=== PATIENT | female | born 1985 | race Two or more races ===

== ENCOUNTER 2018-04-04 12:42 | Emergency (ER) | payer OTHER ==
[~2018-04-04] VITALS: Ht 157.5 cm; Wt 62.1 kg
[~2018-04-04 12:42] MED LIST: DOLOGESIC CAPLE1 TAB PO; PROVENTIL3 ML/2.5 M IH
== END 2018-04-04 17:31 | disposition home or self-care (01) ==
LOC: ER 12:42
DX: B34.9 Viral infection, unspecified (principal)

== ENCOUNTER 2019-03-13 03:40 | Emergency (ER) | payer OTHER ==
[~2019-03-13] VITALS: Ht 157.5 cm; Wt 68.5 kg
[2019-03-13] MEDS ORDERED: ZYRTEC10 M3 (03:58)
[2019-03-13] MEDS ORDERED: PEPCID40 MG PO (08:03)
[2019-03-13] MEDS ORDERED: ZOFRAN4 MG PO (08:03)
== END 2019-03-13 08:27 | disposition home or self-care (01) ==
LOC: ER 03:40
DX: K29.00 Acute gastritis without bleeding (principal)

== ENCOUNTER 2019-06-08 20:44 | Emergency (ER) | payer OTHER ==
[~2019-06-08] VITALS: Ht 160 cm; Wt 65.8 kg
[~2019-06-08 20:44] MED LIST changes: +PEPCID40 MG PO; +ZOFRAN4 MG PO; +ZYRTEC10 M3
[2019-06-09] MEDS ORDERED: ZITHROMAX500 MG PO (01:12)
== END 2019-06-09 01:41 | disposition home or self-care (01) ==
LOC: ER 20:44
DX: J22 Unspecified acute lower respiratory infection (principal); B34.9 Viral infection, unspecified

== ENCOUNTER 2019-10-27 17:13 | Emergency (ER) | payer OTHER ==
[~2019-10-27] VITALS: Ht 157.5 cm; Wt 60.3 kg
[~2019-10-27 17:13] MED LIST changes: +ZITHROMAX500 MG PO
== END 2019-10-27 20:29 | disposition home or self-care (01) ==
LOC: ER 17:13
DX: E86.0 Dehydration (principal); R60.0 Localized edema; E87.8 Other disorders of electrolyte and fluid balance, not elsewhere classified; T67.01XA Heatstroke and sunstroke, initial encounter; X08.8XXA Exposure to other specified smoke, fire and flames, initial encounter; Y93.89 Activity, other specified; Y92.89 Other specified places as the place of occurrence of the external cause; Y99.8 Other external cause status; Z20.828 Contact with and (suspected) exposure to other viral communicable diseases

== ENCOUNTER 2022-03-21 11:00 | Emergency (ER) | payer OTHER ==
[~2022-03-21] VITALS: Ht 157.5 cm; Wt 63.5 kg
== END 2022-03-21 16:32 | disposition home or self-care (01) ==
LOC: ER 11:00
DX: J20.9 Acute bronchitis, unspecified (principal)

== ENCOUNTER 2022-07-16 08:52 | Outpatient (CLI) | payer OTHER | END 2022-07-16 10:15 | disposition home or self-care (01) | LOC: PRENATAL 08:52 | PROVIDERS: ATTEND Obstetrics & Gynecology Maternal & Fetal Medicine | DX: O35.9XX0 Maternal care for (suspected) fetal abnormality and damage, unspecified, not applicable or unspecified (principal); O35.3XX0 Maternal care for (suspected) damage to fetus from viral disease in mother, not applicable or unspecified; O09.529 Supervision of elderly multigravida, unspecified trimester; O43.90 Unspecified placental disorder, unspecified trimester; O34.10 Maternal care for benign tumor of corpus uteri, unspecified trimester; Z3A.20 20 weeks gestation of pregnancy ==

== ENCOUNTER 2022-09-20 13:09 | Emergency (ER) | payer OTHER ==
[~2022-09-20] VITALS: Ht 157.5 cm; Wt 71.7 kg
[2022-09-20] MEDS ORDERED: FERROUS SULFAT325 MG PO (13:39)
[2022-09-20] MEDS ORDERED: MAXFE CAPLET1 EAC1 PO (13:40)
== END 2022-09-20 16:20 | disposition left against medical advice (07) ==
LOC: ER 13:09
DX: Z53.21 Procedure and treatment not carried out due to patient leaving prior to being seen by health care provider (principal)

== ENCOUNTER 2022-10-11 10:10 | Outpatient (CLI) | payer OTHER ==
[~2022-10-11 10:10] MED LIST changes: +FERROUS SULFAT325 MG PO; +MAXFE CAPLET1 EAC1 PO
== END 2022-10-11 11:39 | disposition home or self-care (01) ==
LOC: PRENATAL 10:10
PROVIDERS: ATTEND Obstetrics & Gynecology Maternal & Fetal Medicine
DX: O26.849 Uterine size-date discrepancy, unspecified trimester (principal); O36.8199 Decreased fetal movements, unspecified trimester, other fetus; O09.529 Supervision of elderly multigravida, unspecified trimester; O32.9XX0 Maternal care for malpresentation of fetus, unspecified, not applicable or unspecified; O43.90 Unspecified placental disorder, unspecified trimester; Z3A.32 32 weeks gestation of pregnancy

== ENCOUNTER 2022-10-30 10:57 | Inpatient (IN) | payer OTHER ==
[~2022-10-30] VITALS: Ht 157.5 cm; Wt 77.1 kg
[2022-10-30] MEDS ORDERED: PAXLOVID 300-11 EACH PO (12:17)
[2022-10-30] MEDS ORDERED: PROAIR RESPICL90 MCG IH (12:17)
[2022-10-30] MEDS ORDERED: TUSNEL LIQUID178 ML PO (12:17)
[2022-10-30] MEDS ORDERED: OBSTETRIX ONE 38-1-2 (20:12)
[2022-10-30] MEDS ORDERED: IRON236 MG PO ×2 (20:13→20:14)
[2022-10-30] MEDS ORDERED: IRON325 MG PO (20:15)
[2022-10-30] MEDS ORDERED: PRENATAL CAPLE1 EAC1 PO (20:16)
== END 2022-11-01 11:19 | disposition home or self-care (01) | DRG 831 ==
LOC: ER 10:57 → LDR 13:26 → SEC-K 13:26 → OB/GYN 14:50 → LDR 14:52
PROVIDERS: ADMIT Obstetrics & Gynecology; ATTEND Obstetrics & Gynecology
PROC: 8E0ZXY6 Isolation (ICD-10-PCS; principal; 2022-10-30)
PROC: 4A1HXCZ Monitoring of Products of Conception, Cardiac Rate, External Approach (ICD-10-PCS; 2022-10-31)
DX: O98.513 Other viral diseases complicating pregnancy, third trimester (principal); U07.1 COVID-19; Z3A.35 35 weeks gestation of pregnancy; B34.9 Viral infection, unspecified

== ENCOUNTER 2022-11-21 07:57 | Inpatient (IN) | payer OTHER ==
[~2022-11-21] VITALS: Ht 157.5 cm; Wt 2.7 kg
[~2022-11-21 07:57] MED LIST changes: +IRON236 MG PO; +IRON325 MG PO; +OBSTETRIX ONE 38-1-2; +PAXLOVID 300-11 EACH PO; +PRENATAL CAPLE1 EAC1 PO; +PROAIR RESPICL90 MCG IH; +TUSNEL LIQUID178 ML PO
[2022-11-21] MEDS ORDERED: IRON236 MG PO (10:14)
[2022-11-21] MEDS ORDERED: PRENATAL TABLE1 EAC1 (10:14)
[2022-11-24] MEDS ORDERED: PERCOCET 5-3251 EACH PO (15:17)
[2022-11-24] MEDS ORDERED: SIMETHICONE80 MG PO (15:17)
[2022-11-24] MEDS ORDERED: IBU800 MG PO (15:17)
[2022-11-24] MEDS ORDERED: COLACE100 MG PO (15:17)
== END 2022-11-24 16:33 | DRG 788 ==
LOC: OB/GYN 07:57 → LDR 07:57 → O/R 12:23 → OB/GYN 13:56
PROVIDERS: Obstetrics & Gynecology; ADMIT Obstetrics & Gynecology; ATTEND Obstetrics & Gynecology
PROC: 4A1HXCZ Monitoring of Products of Conception, Cardiac Rate, External Approach (ICD-10-PCS; 2022-11-21)
PROC: 10D00Z1 Extraction of Products of Conception, Low, Open Approach (ICD-10-PCS; principal; 2022-11-21 11:00)
DX: O32.1XX0 Maternal care for breech presentation, not applicable or unspecified (principal); O99.824 Streptococcus B carrier state complicating childbirth; Z3A.38 38 weeks gestation of pregnancy; Z37.0 Single live birth; Z20.822 Contact with and (suspected) exposure to COVID-19

== ENCOUNTER 2024-03-17 15:49 | Emergency (ER) | payer OTHER ==
[~2024-03-17] VITALS: Ht 157.5 cm; Wt 70.3 kg
[~2024-03-17 15:49] MED LIST changes: +COLACE100 MG PO; +IBU800 MG PO; +PERCOCET 5-3251 EACH PO; +PRENATAL TABLE1 EAC1; +SIMETHICONE80 MG PO
[2024-03-17 16:13] VITALS: BP 112/79; O2SAT 99
[2024-03-17] MEDS ORDERED: CIPROFLOXACIN IN 5 % DEXTROSE 400 MG/200 ML PIGGYBAG IV ONE ×2 (16:37→16:45)
[2024-03-17] MEDS ORDERED: METRONIDAZOLE/SODIUM CHLORIDE 500 MG/100 ML PIGGYBACK IV ONE ×2 (16:38→16:45)
[2024-03-17] MEDS ORDERED: FAMOTIDINE/PF 20 MG/2 ML VIAL ONE (16:38)
[2024-03-17] MEDS ORDERED: FAMOtidine 10 MG/ML (4ML VIAL) IV ONE (16:45)
[2024-03-17] MEDS ORDERED: 0.9 % SODIUM CHLORIDE 1,000 ML IV ONE (16:45)
[2024-03-17 17:48] LABS: HEMATOCRIT 36.6 % (36.0-45.00); HEMOGLOBIN 11.9 g/dL (12.0-15.00); MEAN CELL VOLUME 76.6 fL (80.00-100.00); MEAN CORPUSCULAR HEMOGLOBIN 24.9 pg (27.00-32.0); MEAN CORPUSCULAR HGB CONC 32.5 g/dl (32.0-36.0); PLATELET COUNT 374 K/uL (150-450); RED BLOOD COUNT 4.78 M/uL (4.00-6.00); RED CELL DISTRIBUTION WIDTH 15.2 % (11.5-14.5)
[2024-03-17 18:19] LABS: ALBUMIN 3.9 gm/dL (3.4-5.0); BILIRUBIN TOTAL 0.44 mg/dL (0.3-1.2); GFR 62.39; GLOBULINA 4.3 G/DL (2.4-3.5); POTASSIUM 3.93 mEq/L (3.5-5.1); TOTAL PROTEIN 8.2 gm/dL (6.4-8.2)
[2024-03-17] MEDS ORDERED: METRONIDAZOLE500 MG PO (18:55)
[2024-03-17] MEDS ORDERED: PEPCID AC20 MG PO (18:55)
[2024-03-17] MEDS ORDERED: CIPRO500 MG PO (18:55)
[2024-03-17] MEDS ORDERED: PROBIOTIC1 EAC2 PO (18:55)
== END 2024-03-17 20:45 | disposition home or self-care (01) ==
LOC: ER 15:52
PROVIDERS: General Practice
DX: R19.7 Diarrhea, unspecified (principal)